=== PATIENT | female | born 1985 | race African-American/Black ===

== ENCOUNTER 2019-01-20 22:18 | Emergency (ER) | payer SELFPAY ==
[~2019-01-20] VITALS: Ht 165.1 cm; Wt 86.0 kg
[2019-01-20] MEDS ORDERED: LIDOCAINE HCL 1% 20ML VIAL (Pyxis) INJ INFIL ONE (23:45)
[2019-01-21] MEDS ORDERED: KETOROLAC 60MG/2ML VIAL IM ONE (02:15)
[2019-01-21 02:46] VITALS: BP 157/92
== END 2019-01-21 02:48 | disposition home or self-care (01) ==
LOC: ER 22:18
DX: S01.511A Laceration without foreign body of lip, initial encounter (principal); S01.81XA Laceration without foreign body of other part of head, initial encounter; H10.10 Acute atopic conjunctivitis, unspecified eye; F12.10 Cannabis abuse, uncomplicated; V19.88XA Pedal cyclist (driver) (passenger) injured in other specified transport accidents, initial encounter; Y93.55 Activity, bike riding; Y92.89 Other specified places as the place of occurrence of the external cause; Y99.8 Other external cause status
CPT/HCPCS: 12013; 96372; 99284; A4217; J1885; J3490; Z7610

== ENCOUNTER 2019-05-25 16:55 | Emergency (ER) | payer SELFPAY ==
[~2019-05-25] VITALS: Ht 165.1 cm; Wt 86.0 kg
[2019-05-25] MEDS ORDERED: SODIUM CHLORIDE 0.9% 1,000 ML IV ONE (19:30)
[2019-05-25] MEDS ORDERED: AZITHROMYCIN 500 MG TABLET PO ONE (19:30)
[2019-05-25] MEDS ORDERED: ACETAMINOPHEN 500MG TABLET PO ONE (19:30)
[2019-05-25 21:08] VITALS: BP 121/71
== END 2019-05-25 21:10 | disposition home or self-care (01) ==
LOC: ER 16:55
DX: J32.9 Chronic sinusitis, unspecified (principal); H66.91 Otitis media, unspecified, right ear; J06.9 Acute upper respiratory infection, unspecified
CPT/HCPCS: 93005; 99283; J7030

== ENCOUNTER 2022-03-26 06:42 | Emergency (ER) | payer SELFPAY ==
[~2022-03-26] VITALS: Ht 165.1 cm; Wt 100.0 kg
[~2022-03-26 06:42] MED LIST: DOXY100C5 MT
[2022-03-26 06:55] VITALS: BP 128/79
[2022-03-26] MEDS ORDERED: DOXY-326 PO (07:28)
[2022-03-26] MEDS ORDERED: CEFTRIAXONE SODIUM 500 MG/VIAL IM ONE (07:30)
[2022-03-26] MEDS ORDERED: LIDOCAINE HCL 1% 20ML VIAL (Pyxis) INJ INFIL ONE (07:30)
[2022-03-26] MEDS ORDERED: DOXYCYCLINE HYCLATE 100MG CAPSULE PO ONE (07:30)
[2022-03-26] MEDS ORDERED: LIDOCAINE HCL 1% 10 MG/ML 10ML VIAL IJ NR (08:15)
[2022-03-26 08:24] LABS: CLARITY URINE CLEAR (CLEAR); COLOR URINE YELLOW (YELLOW); KETONES URINE TRACE (NEGATIVE); LEUKOCYTE ESTERASE URINE TRACE (NEGATIVE); NITRITE URINE NEGATIVE (NEGATIVE); OCCULT BLOOD URINE NEGATIVE (NEGATIVE); PH URINE 7.5 (4.5-8.0); PROTEIN URINE NEGATIVE (NEGATIVE); SPECIFIC GRAVITY URINE 1.029 (1.005-1.030)
== END 2022-03-26 08:26 | disposition home or self-care (01) ==
LOC: ER 06:42
DX: A64 Unspecified sexually transmitted disease (principal); Z98.890 Other specified postprocedural states
CPT/HCPCS: 81003; 81025; 96372; 99283; J0696; J3490

== ENCOUNTER 2022-04-12 05:24 | Emergency (ER) | payer MEDICAID ==
[~2022-04-12] VITALS: Ht 165.1 cm; Wt 100.0 kg
[~2022-04-12 05:24] MED LIST changes: +DOXY-326 PO
[2022-04-12 05:31] VITALS: BP 123/78
[2022-04-12] MEDS ORDERED: ACETAMINOPHEN 325MG TABLET PO ONE (06:00)
[2022-04-12 07:38] LABS: CLARITY URINE CLOUDY (CLEAR); COLOR URINE YELLOW (YELLOW); KETONES URINE TRACE (NEGATIVE); LEUKOCYTE ESTERASE URINE NEGATIVE (NEGATIVE); NITRITE URINE NEGATIVE (NEGATIVE); OCCULT BLOOD URINE NEGATIVE (NEGATIVE); PH URINE 5.5 (4.5-8.0); PROTEIN URINE TRACE (NEGATIVE); SPECIFIC GRAVITY URINE 1.028 (1.005-1.030); UROBILINOGEN URINE 0.2 E.U./dL (0.2-1.0)
[2022-04-12] MEDS ORDERED: TOPUD PO (08:06)
[2022-04-12] MEDS ORDERED: NITR100C PO (08:06)
== END 2022-04-12 08:28 | disposition home or self-care (01) ==
LOC: ER 05:24
DX: N39.0 Urinary tract infection, site not specified (principal); M25.552 Pain in left hip
CPT/HCPCS: 72100; 81003; 81025; 99284